=== PATIENT | male | born 1995 | race Asian ===

== ENCOUNTER 2020-04-13 00:24 | Emergency (ER) | payer OTHER ==
[~2020-04-13] VITALS: Ht 175.3 cm; Wt 72.6 kg
--- NOTE | 2020-04-13 00:43 | Emergency Department Note ---
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 According to the patient, he works in the Engine Room and stood up and accidentally hit is head on an @ 3 cm steel pipe, causing a laceration of the left anterior scalp. Pt denies any LOC, GAYTAN, N/V or focal neuro findings. Historian: Patient Arrival Mode: Car Additional Treatment JUNIOR LINUX SYSTEMS ADMINISTRATOR: wound cleaned with iodine and hair shaved History limited by: language barrier Mud Tank Operator Required: Yes (Vdancer Link audio [employer] endodontics dentist utillzed) Location: left anterior scalp area Quality: healing, large eschar formed Radiation: non-radiation Severity: mild Onset quality: sudden Duration (how long): hour(s) (39 hours ago) Timing of current episode: constant Progression: improving Chronicity: new Context: recent travel (travels on ships to various countries; trauma/injury described above;), trauma/injury Relieving factors: none Exacerbating factors: none Associated symptoms: denies other symptoms Treatments prior to arrival: other (Hair around the laceration shaved and wound cleaned with what looks like iodine) Risk factors: wound is more than 24 hours old Past Medical/Family History Physician Review I have reviewed the patient's past medical and family history. Any updates have been documented here. Past Medical History Recent Fever: No Clinical Suspicion of Infectio: No New/Unexplained Change in Ment: No Past Medical History: None Past Surgical History: None Social History Smoking Cessation: Never Smoker Alcohol Use: None Any Illegal Drug Use: No TB Exposure/Symptoms: No Physically hurt or threatened: No Family History Family history of heart diseas: No Other Last Tetanus: unknown Any Pre-Existing Lines (PICC,: No Is patient up to date on immun: No Review of Systems Review of Systems Constitutional: no symptoms EENTM: no symptoms Cardiovascular: no symptoms Respiratory: no symptoms; as per HPI, change in phlegm color, chest congestion, cough, hemoptysis, excessive phlegm production, pain on inspiration, pain with cough, dyspnea, dyspnea on exertion, snoring, stridor, wheezing, other Musculoskeletal: no symptoms Neurological: no symptoms, other (closed head injury with a 3 cm pipe) Psychological: no symptoms Review of other systems All other systems reviewed and negative. Physical Exam Related Data Allergies: Coded Allergies: No Known Allergies (Unverified , 04/13/20) Triage Vital Signs See nurse's note Vital signs reviewed: Yes Physical Exam CONSTITUTIONAL Constitutional: well-developed, well-nourished HENT HENT: normocephalic, other (Pt with a 3-4 cm horizontal lac on the left frontal scalp area, with thick overlying escar; no depressed skull fracture palpated;) HENT L/R: left TM normal, right TM normal (no hemotympanum), left ext ear normal, right ext ear normal EYES Eyes: PERRL, conjunctivae normal NECK Neck: ROM normal PULMONARY Pulmonary: effort normal, breath sounds normal CARDIOVASCULAR Cardiovascular: regular rhythm, heart sounds normal, capillary refill normal, normal rate GASTROINTESTINAL GENITOURINARY SKIN Skin: warm, dry MUSCULOSKELETAL Musculoskeletal: ROM normal NEUROLOGICAL Neurological: alert, oriented x 3, no gross motor or sensory deficits PSYCHOLOGICAL Psychological: mood/affect normal, judgement normal Critical Care Time Subsequent provider I assumed direction of critical care for this patient from another provider of my specialty. Assessment & Plan Assessment & Plan Final Impression: (1) Scalp laceration (2) Closed head injury Assessment & Plan - Explained that since it has been well over 24 hours since the laceration occurred, and that there is a thick eschar formed overlying the wound, sutures are not indicated, due to increased risk of infection. There is no active bleeding and no palpable skull fracture. Pt without signs or symptoms of a concussion, and no LOC. No severe GAYTAN, N/V or focal neuro findings, so no need for CT brain. The [place] that [place] on [place] happened, which is why there was a delay in presentation. - Recommend local wound care and a course of Cephalexin to try and prevent infection and apply bacitracin to wound bid - Pt to watch for signs and symptoms of infection, and ALL of this was reviewed with patient, via [employer]ian endodontics dentist, on Culture link. Pt is to follow-up immediately with his medical observer on board, if he develops any symptoms of infection. - Adacel given - Mongolian telegraph office route aide used and patient's questions were answered. Depart Disposition: HOME, SELF-CARE Last Vital Signs See nurse's notes Home Meds Active Scripts Cephalexin (CEPHALEXIN) 500 Mg Capsule, 1 TAB PO TID for infection for 7 Days, #21 CAP 0 Refills Prov:VANGIE CHRIS MD 04/13/20 Bacitracin (BACITRACIN) 15 Gm Oint...g., 1 DOSE TOP BID for 7 Days, #30 G 0 Refills Prov:VANGIE CHRIS MD 04/13/20 Medications in the ED Bacitracin Zinc 1 ea STK-MED ONCE TP ; Start 04/13/20 at 00:45; Stop 04/13/20 at 00:42; Status DC Tetanus/ Diphtheria Toxoids 0.5 ml STK-MED ONCE .ROUTE ; Start 04/13/20 at 00:45; Stop 04/13/20 at 00:42; Status DC VANGIE CHRIS MD April 13, 2020 00:43
[2020-04-13] MEDS ORDERED: BACITRACIN ZINC 0.9GM TP ONE (00:45)
[2020-04-13] MEDS ORDERED: DIPHTH/TETANUS/ACEL. PERTUSSIS 0.5 ML SYR IM ONE (00:45)
[2020-04-13] MEDS ORDERED: TETANUS/DIPHTHERIA TOX ADULT 0.5 ML SYR ONE (00:45)
[2020-04-13] MEDS ORDERED: BACITRACIN15 GM TOP (01:10)
[2020-04-13] MEDS ORDERED: CEPHALEXIN500 MG PO (01:11)
[2020-04-13] MEDS ORDERED: BACITRACIN ZINC 15 GM OINT TOP SCH (09:00)
== END 2020-04-13 01:17 | disposition home or self-care (01) ==
LOC: FSED 00:24
DX: S01.01XA Laceration without foreign body of scalp, initial encounter (principal); W22.09XA Striking against other stationary object, initial encounter; Y99.0 Civilian activity done for income or pay
CPT/HCPCS: 90471; 90714; 99283